=== PATIENT | female | born 1995 | race African-American/Black ===

== ENCOUNTER 2017-10-18 15:32 | Inpatient (IN) | payer OTHER ==
[2017-10-18] MEDS: BETAMET NA PHOS/AC(6 MG/ML) 5ML INJ IM (18:17)
[2017-10-18] MEDS: AMPICILLIN 2 GM/NS (PMX) 100 ML IVPB ×2 (18:23→22:10)
[2017-10-18 18:24] LABS: ADD UMIC YES; UR ASCORBIC ACID 40 mg/dL (NEGATIVE); UR BILIRUBIN (Dip) NEGATIVE (NEGATIVE); UR BLOOD (Dip) 3+ mg/dL (NEGATIVE); UR CLARITY CLEAR (CLEAR); UR COLOR YELLOW (YELLOW); UR GLUCOSE (Dip) NEGATIVE (NEGATIVE); UR KETONES (Dip) NEGATIVE (NEGATIVE); UR LEUKOCYTE ESTERASE (Dip) TRACE Leu/ul (NEGATIVE); UR MUCUS FEW /HPF (NONE SEEN); UR NITRITE (Dip) NEGATIVE (NEGATIVE); UR RBC 56 /HPF (0-5); UR SPECIFIC GRAVITY (Dip) 1.031 (1.003-1.030); UR SQUAMOUS EPITHELIAL CELL FEW /HPF (FEW); UR TOTAL PROTEIN (Dip) 1+ mg/dl (NEGATIVE); UR UROBILINOGEN (Dip) 2+ mg/dL (NEGATIVE); UR WBC 5 /HPF (0-5)
[2017-10-18] MEDS: LACTATED RINGER'S 1,000 ML IV (18:26)
[2017-10-18 19:43] LABS: ADD MAN DIFF? NO
[2017-10-18 19:49] LABS: BASOPHILS % 0.1 % (0.0-2.0); EOSINOPHILS # 0.2 10^3/ul (0.0-0.5); EOSINOPHILS % 2.3 % (0.0-7.0); HEMATOCRIT 27.3 % (37.0-47.0); HEMOGLOBIN 9.5 g/dl (12.0-16.0); LYMPHOCYTES # 2.3 10^3/ul (0.8-2.9); LYMPHOCYTES % 30.4 % (15.0-51.0); MEAN CORPUSCULAR HEMOGLOBIN 31.3 pg (29.0-33.0); MEAN CORPUSCULAR HGB CONC 34.8 g/dl (32.0-37.0); MEAN CORPUSCULAR VOLUME 89.8 fl (82.0-101.0); MEAN PLATELET VOLUME 8.9 fl (7.4-10.4); MONOCYTE # 0.7 10^3/ul (0.3-0.9); MONOCYTES % 8.6 % (0.0-11.0); NEUTROPHIL # 4.5 10^3/ul (1.6-7.5); NEUTROPHILS % 58.1 % (39.0-77.0); PLATELET COUNT 369 10^3/UL (140-415); RED BLOOD COUNT 3.04 10^6/ul (4.20-5.40)
[2017-10-18 19:49] LABS: WHITE BLOOD COUNT 7.7 10^3/ul (4.8-10.8)
[2017-10-18 20:07] LABS: INR 0.91; PROTIME 12.3 Sec (11.9-14.9)
[2017-10-18 20:08] LABS: PARTIAL THROMBOPLASTIN TIME 28.7 Sec (25.0-35.0)
[2017-10-18] MEDS ORDERED: AMPICILLIN 2 GM/NS (PMX) 100 ML IVPB (21:00)
[2017-10-18] MEDS ORDERED: BETAMET NA PHOS/AC(6 MG/ML) 5ML INJ IM (21:00)
[2017-10-19] MEDS: LACTATED RINGER'S 1,000 ML IV ×4 (00:57→22:40)
[2017-10-19] MEDS: CALCIUM CARBONATE 500 MG CHEW TAB PO (00:58)
[2017-10-19] MEDS: AMPICILLIN 2 GM/NS (PMX) 100 ML IVPB ×6 (02:40→22:43)
[2017-10-19] MEDS: FERROUS SULFATE (EC) 325 MG TAB PO (08:32)
[2017-10-19] MEDS: DOCUSATE SODIUM 100 MG CAP PO (08:33)
[2017-10-19] MEDS: PRENATAL VITAMIN PO (08:33)
[2017-10-19] MEDS ORDERED: PNV CMB PO (09:00)
[2017-10-19] MEDS ORDERED: [UNRECOGNIZED DRUG - OTHER] PO (09:00)
[2017-10-19] MEDS ORDERED: FERROUS FUMARATE PO (09:00)
[2017-10-19] MEDS ORDERED: MEPERIDINE 25 MG INJ IV (14:00)
[2017-10-19 15:14] LABS: ADD MAN DIFF? NO
[2017-10-19 15:17] LABS: BASOPHILS % 0.1 % (0.0-2.0); EOSINOPHILS % 0.1 % (0.0-7.0); HEMATOCRIT 25.5 % (37.0-47.0); HEMOGLOBIN 8.8 g/dl (12.0-16.0); LYMPHOCYTES # 1.7 10^3/ul (0.8-2.9); LYMPHOCYTES % 17.5 % (15.0-51.0); MEAN CORPUSCULAR HEMOGLOBIN 30.9 pg (29.0-33.0); MEAN CORPUSCULAR HGB CONC 34.5 g/dl (32.0-37.0); MEAN CORPUSCULAR VOLUME 89.5 fl (82.0-101.0); MONOCYTE # 0.8 10^3/ul (0.3-0.9); MONOCYTES % 8.9 % (0.0-11.0); NEUTROPHIL # 6.8 10^3/ul (1.6-7.5); NEUTROPHILS % 72.3 % (39.0-77.0); PLATELET COUNT 353 10^3/UL (140-415); RED BLOOD COUNT 2.85 10^6/ul (4.20-5.40)
[2017-10-19 15:17] LABS: WHITE BLOOD COUNT 9.5 10^3/ul (4.8-10.8)
[2017-10-19 15:36] LABS: ALANINE AMINOTRANSFERASE 30 IU/L (13-69); ALBUMIN 3.3 g/dl (3.3-4.9); ALBUMIN/GLOBULIN RATIO 0.97; ALKALINE PHOSPHATASE 142 IU/L (42-121); ANION GAP 13 (8-16); ASPARTATE AMINO TRANSFERASE 21 IU/L (15-46); BILIRUBIN,INDIRECT 0.1 mg/dl (0-1.1); BILIRUBIN,TOTAL 0.1 mg/dl (0.2-1.3); BLOOD UREA NITROGEN 9 mg/dl (7-20); CALCIUM 8.9 mg/dl (8.4-10.2); CARBON DIOXIDE 21 mmol/L (21-31); CHLORIDE 107 mmol/L (97-110); CREATININE 0.58 mg/dl (0.44-1.00); GLUCOSE 128 mg/dl (70-220); POTASSIUM 3.7 mmol/L (3.5-5.1); SODIUM 137 mmol/L (135-144); TOTAL PROTEIN 6.7 g/dl (6.1-8.1)
[2017-10-19] MEDS: FAMOTIDINE 20 MG INJ IV (17:26)
[2017-10-19] MEDS: BETAMET NA PHOS/AC(6 MG/ML) 5ML INJ IM (18:21)
[2017-10-20] MEDS: AMPICILLIN 2 GM/NS (PMX) 100 ML IVPB ×6 (04:20→22:51)
[2017-10-20] MEDS: ACETAMINOPHEN 325 MG TAB PO (04:56)
[2017-10-20] MEDS: LACTATED RINGER'S 1,000 ML IV ×4 (06:32→19:00)
[2017-10-20] MEDS: FERROUS SULFATE (EC) 325 MG TAB PO (09:00)
[2017-10-20] MEDS: DOCUSATE SODIUM 100 MG CAP PO (09:15)
[2017-10-20] MEDS: PRENATAL VITAMIN PO (09:15)
[2017-10-20] MEDS: ONDANSETRON 4 MG INJ IV (18:41)
[2017-10-21] MEDS: AMPICILLIN 2 GM/NS (PMX) 100 ML IVPB ×2 (02:30→06:25)
[2017-10-21] MEDS: FERROUS SULFATE (EC) 325 MG TAB PO (09:00)
[2017-10-21] MEDS ORDERED: CALCIUM CARBONATE 500 MG CHEW TAB PO (09:05)
[2017-10-21] MEDS: DOCUSATE SODIUM 100 MG CAP PO (09:06)
[2017-10-21] MEDS: PRENATAL VITAMIN PO (09:06)
[2017-10-21] MEDS: AL HYDROX/MG HYDROX/SIMETH 30 ML CUP PO (09:08)
== END 2017-10-21 09:45 | disposition home or self-care (01) | DRG 778 ==
LOC: OBT 15:32 → L-D 15:33 → OBT 17:00 → L-D 17:00 → PP1 18:00
DX: O60.03 Preterm labor without delivery, third trimester (principal); K76.0 Fatty (change of) liver, not elsewhere classified; N13.30 Unspecified hydronephrosis; O23.43 Unspecified infection of urinary tract in pregnancy, third trimester; O26.612 Liver and biliary tract disorders in pregnancy, second trimester; O99.613 Diseases of the digestive system complicating pregnancy, third trimester; K80.20 Calculus of gallbladder without cholecystitis without obstruction; B95.61 Methicillin susceptible Staphylococcus aureus infection as the cause of diseases classified elsewhere; Z3A.34 34 weeks gestation of pregnancy; Z87.440 Personal history of urinary (tract) infections
CPT/HCPCS: 76705; 76775; 76818; 80053; 81001; 85025; 85610; 85730; 87086; 93970

== ENCOUNTER 2017-10-25 14:31 | Inpatient (IN) | payer OTHER ==
[2017-10-25] MEDS ORDERED: LACTATED RINGER'S 1,000 ML IV (15:13)
[2017-10-25] MEDS ORDERED: MISOPROSTOL 200 MCG TAB PR (15:30)
[2017-10-25] MEDS ORDERED: BUTORPHANOL 2 MG INJ IV (15:30)
[2017-10-25] MEDS ORDERED: OXYTOCIN 30 UNITS/LR 500 ML IV ×3 (15:30)
[2017-10-25] MEDS ORDERED: METHYLERGONOVINE 0.2 MG INJ IM (15:30)
[2017-10-25] MEDS ORDERED: LIDOCAINE 1% (MPF) 30 ML INJ INJ (15:30)
[2017-10-25] MEDS ORDERED: CARBOPROST 250 MCG INJ IM (15:30)
[2017-10-25] MEDS: LACTATED RINGER'S 1,000 ML IV (16:43)
[2017-10-25] MEDS: AMPICILLIN 2 GM/NS (PMX) 100 ML IV (16:44)
[2017-10-25 17:34] LABS: ADD MAN DIFF? NO
[2017-10-25 17:37] LABS: WHITE BLOOD COUNT 10.2 10^3/ul (4.8-10.8)
[2017-10-25 17:37] LABS: BASOPHILS % 0.2 % (0.0-2.0); EOSINOPHILS # 0.3 10^3/ul (0.0-0.5); EOSINOPHILS % 2.7 % (0.0-7.0); HEMOGLOBIN 9.2 g/dl (12.0-16.0); LYMPHOCYTES # 2.7 10^3/ul (0.8-2.9); LYMPHOCYTES % 26.9 % (15.0-51.0); MEAN CORPUSCULAR HEMOGLOBIN 30.8 pg (29.0-33.0); MEAN CORPUSCULAR HGB CONC 34.1 g/dl (32.0-37.0); MEAN CORPUSCULAR VOLUME 90.3 fl (82.0-101.0); MEAN PLATELET VOLUME 8.7 fl (7.4-10.4); MONOCYTE # 0.9 10^3/ul (0.3-0.9); MONOCYTES % 9.1 % (0.0-11.0); NEUTROPHIL # 6.1 10^3/ul (1.6-7.5); NEUTROPHILS % 60.3 % (39.0-77.0); PLATELET COUNT 351 10^3/UL (140-415); RED BLOOD COUNT 2.99 10^6/ul (4.20-5.40); RED CELL DISTRIBUTION WIDTH 13.3 % (11.5-14.5)
[2017-10-25 17:56] LABS: INR 1.01; PROTIME 13.4 Sec (11.9-14.9)
[2017-10-25 17:57] LABS: PARTIAL THROMBOPLASTIN TIME 26.6 Sec (25.0-35.0)
[2017-10-25 18:30] LABS: HEPATITIS B SURFACE ANTIGEN NEGATIVE (NEGATIVE)
[2017-10-25 19:22] LABS: ADD UMIC YES; UR ASCORBIC ACID 40 mg/dL (NEGATIVE); UR BACTERIA FEW /HPF (NONE SEEN); UR BILIRUBIN (Dip) NEGATIVE (NEGATIVE); UR BLOOD (Dip) 2+ mg/dL (NEGATIVE); UR CLARITY CLEAR (CLEAR); UR COLOR YELLOW (YELLOW); UR GLUCOSE (Dip) NEGATIVE (NEGATIVE); UR KETONES (Dip) NEGATIVE (NEGATIVE); UR LEUKOCYTE ESTERASE (Dip) TRACE Leu/ul (NEGATIVE); UR NITRITE (Dip) NEGATIVE (NEGATIVE); UR RBC 41 /HPF (0-5); UR SPECIFIC GRAVITY (Dip) 1.028 (1.003-1.030); UR SQUAMOUS EPITHELIAL CELL FEW /HPF (FEW); UR TOTAL PROTEIN (Dip) 2+ mg/dl (NEGATIVE); UR UROBILINOGEN (Dip) NEGATIVE (NEGATIVE); UR WBC 5 /HPF (0-5)
[2017-10-25] MEDS: AMPICILLIN 1 GM/NS (PMX) 50 ML IV ×2 (19:44→23:44)
[2017-10-25 19:51] LABS: CANNABINOIDS Negative (NEGATIVE); OPIATES Negative (NEGATIVE)
[2017-10-25 20:02] LABS: AMPHETAMINE/METHAMPHETAMINE Negative (NEGATIVE); BARBITURATES Negative (NEGATIVE); BENZODIAZEPINES Negative (NEGATIVE); COCAINE Negative (NEGATIVE)
[2017-10-26] MEDS: AMPICILLIN 1 GM/NS (PMX) 50 ML IV ×7 (00:30→23:55)
[2017-10-26] MEDS: LACTATED RINGER'S 1,000 ML IV ×3 (01:31→19:47)
[2017-10-26] MEDS: ONDANSETRON 4 MG INJ IV (12:37)
[2017-10-26] MEDS ORDERED: MEPERIDINE 50 MG INJ IV (13:00)
[2017-10-26 15:40] LABS: RAPID PLASMA REAGIN NONREACTIVE (NR)
== END 2017-10-27 14:09 | disposition home or self-care (01) | DRG 780 ==
LOC: OBT 14:31 → L-D 14:56 → OBT 14:31 → L-D 15:40
DX: O47.03 False labor before 37 completed weeks of gestation, third trimester (principal); Z3A.35 35 weeks gestation of pregnancy
CPT/HCPCS: 76815; 76818; 80307; 81001; 85025; 85610; 85730; 86592; 86900; 86901; 87086; 87340

== ENCOUNTER 2018-06-28 01:26 | Emergency (ER) | payer OTHER ==
[2018-06-28 02:07] LABS: ADD MAN DIFF? NO
[2018-06-28] MEDS: morphine 4 MG/ML VIAL IV (02:07)
[2018-06-28] MEDS: SOD CHLORIDE 0.9% 1,000 ML IV (02:07)
[2018-06-28] MEDS: ONDANSETRON 4 MG INJ IV (02:07)
[2018-06-28 02:12] LABS: WHITE BLOOD COUNT 13.2 10^3/ul (4.8-10.8)
[2018-06-28 02:12] LABS: BASOPHILS % 0.2 % (0.0-2.0); EOSINOPHILS # 0.2 10^3/ul (0.0-0.5); EOSINOPHILS % 1.2 % (0.0-7.0); HEMATOCRIT 36.3 % (37.0-47.0); HEMOGLOBIN 12.2 g/dl (12.0-16.0); LYMPHOCYTES # 2.7 10^3/ul (0.8-2.9); LYMPHOCYTES % 20.5 % (15.0-51.0); MEAN CORPUSCULAR HEMOGLOBIN 31.4 pg (29.0-33.0); MEAN CORPUSCULAR HGB CONC 33.6 g/dl (32.0-37.0); MEAN CORPUSCULAR VOLUME 93.6 fl (82.0-101.0); MEAN PLATELET VOLUME 8.6 fl (7.4-10.4); MONOCYTE # 0.7 10^3/ul (0.3-0.9); MONOCYTES % 5.1 % (0.0-11.0); NEUTROPHIL # 9.6 10^3/ul (1.6-7.5); NEUTROPHILS % 72.7 % (39.0-77.0); PLATELET COUNT 342 10^3/UL (140-415); RED BLOOD COUNT 3.88 10^6/ul (4.20-5.40); RED CELL DISTRIBUTION WIDTH 12.1 % (11.5-14.5)
[2018-06-28 02:34] LABS: ALANINE AMINOTRANSFERASE 37 IU/L (13-69); ALBUMIN 3.5 g/dl (3.3-4.9); ALBUMIN/GLOBULIN RATIO 0.94; ALKALINE PHOSPHATASE 148 IU/L (42-121); ANION GAP 9 (8-16); ASPARTATE AMINO TRANSFERASE 47 IU/L (15-46); BILIRUBIN,INDIRECT 0.2 mg/dl (0-1.1); BILIRUBIN,TOTAL 0.2 mg/dl (0.2-1.3); BLOOD UREA NITROGEN 18 mg/dl (7-20); CALCIUM 9.3 mg/dl (8.4-10.2); CARBON DIOXIDE 29 mmol/L (21-31); CHLORIDE 104 mmol/L (97-110); CREATININE 0.91 mg/dl (0.44-1.00); GLUCOSE 89 mg/dl (70-220); LIPASE 351 U/L (23-300); POTASSIUM 3.9 mmol/L (3.5-5.1); SODIUM 138 mmol/L (135-144); TOTAL PROTEIN 7.2 g/dl (6.1-8.1)
[2018-06-28 03:19] LABS: ADD UMIC YES; UR ASCORBIC ACID NEGATIVE (NEGATIVE); UR BILIRUBIN (Dip) NEGATIVE (NEGATIVE); UR BLOOD (Dip) 3+ mg/dL (NEGATIVE); UR CLARITY CLEAR (CLEAR); UR COLOR YELLOW (YELLOW); UR GLUCOSE (Dip) NEGATIVE (NEGATIVE); UR KETONES (Dip) NEGATIVE (NEGATIVE); UR LEUKOCYTE ESTERASE (Dip) NEGATIVE Leu/ul (NEGATIVE); UR NITRITE (Dip) NEGATIVE (NEGATIVE); UR RBC 10 /HPF (0-5); UR SPECIFIC GRAVITY (Dip) 1.018 (1.003-1.030); UR SQUAMOUS EPITHELIAL CELL FEW /HPF (FEW); UR TOTAL PROTEIN (Dip) NEGATIVE (NEGATIVE); UR UROBILINOGEN (Dip) NEGATIVE (NEGATIVE); UR WBC 5 /HPF (0-5)
[2018-06-28] MEDS: KETOROLAC 30 MG INJ IV (03:35)
== END 2018-06-28 04:00 | disposition home or self-care (01) ==
LOC: E/R 01:26
DX: K80.70 Calculus of gallbladder and bile duct without cholecystitis without obstruction (principal); F17.210 Nicotine dependence, cigarettes, uncomplicated
CPT/HCPCS: 36415; 76705; 80053; 81001; 81025; 83690; 85025; 96374; 96375; 99285-25

== ENCOUNTER 2019-02-11 19:42 | Emergency (ER) | payer OTHER ==
[2019-02-11 20:25] LABS: ADD MAN DIFF? NO
[2019-02-11 20:26] LABS: WHITE BLOOD COUNT 9.5 10^3/ul (4.8-10.8)
[2019-02-11 20:26] LABS: BASOPHILS % 0.3 % (0.0-2.0); EOSINOPHILS # 0.2 10^3/ul (0.0-0.5); EOSINOPHILS % 1.6 % (0.0-7.0); HEMATOCRIT 35.3 % (37.0-47.0); HEMOGLOBIN 11.6 g/dl (12.0-16.0); LYMPHOCYTES # 2.8 10^3/ul (0.8-2.9); LYMPHOCYTES % 29.6 % (15.0-51.0); MEAN CORPUSCULAR HEMOGLOBIN 31.2 pg (29.0-33.0); MEAN CORPUSCULAR HGB CONC 32.9 g/dl (32.0-37.0); MEAN CORPUSCULAR VOLUME 94.9 fl (82.0-101.0); MEAN PLATELET VOLUME 8.5 fl (7.4-10.4); MONOCYTE # 0.4 10^3/ul (0.3-0.9); MONOCYTES % 3.9 % (0.0-11.0); NEUTROPHIL # 6.1 10^3/ul (1.6-7.5); NEUTROPHILS % 64.3 % (39.0-77.0); PLATELET COUNT 337 10^3/UL (140-415); RED BLOOD COUNT 3.72 10^6/ul (4.20-5.40); RED CELL DISTRIBUTION WIDTH 12.9 % (11.5-14.5)
[2019-02-11] MEDS: OXYCODONE/ACETAMINOPHEN (5/325) TAB PO (20:30)
[2019-02-11 20:52] LABS: ALANINE AMINOTRANSFERASE 39 IU/L (13-69); ALBUMIN 4.2 g/dl (3.3-4.9); ALBUMIN/GLOBULIN RATIO 1.16; ALKALINE PHOSPHATASE 135 IU/L (42-121); ANION GAP 7 (5-13); ASPARTATE AMINO TRANSFERASE 41 IU/L (15-46); BILIRUBIN,INDIRECT 0.2 mg/dl (0-1.1); BILIRUBIN,TOTAL 0.2 mg/dl (0.2-1.3); BLOOD UREA NITROGEN 22 mg/dl (7-20); CALCIUM 9.5 mg/dl (8.4-10.2); CARBON DIOXIDE 30 mmol/L (21-31); CHLORIDE 105 mmol/L (97-110); Estimated GFR > 60 mL/min (>60); GLUCOSE 162 mg/dl (70-220); LIPASE 397 U/L (23-300); POTASSIUM 3.9 mmol/L (3.5-5.1); SODIUM 142 mmol/L (135-144); TOTAL PROTEIN 7.8 g/dl (6.1-8.1)
== END 2019-02-11 21:33 | disposition home or self-care (01) ==
LOC: FTE 21:33
DX: K80.20 Calculus of gallbladder without cholecystitis without obstruction (principal); F17.210 Nicotine dependence, cigarettes, uncomplicated
CPT/HCPCS: 76705; 80053; 83690; 85025; 99284-25

== ENCOUNTER 2019-02-22 22:14 | Emergency (ER) | payer OTHER ==
[2019-02-22] MEDS: ONDANSETRON 4 MG INJ IV (22:26)
[2019-02-22] MEDS: SOD CHLORIDE 0.9% 1,000 ML IV (22:27)
[2019-02-22 22:57] LABS: URINE PH (Dip) POC 7.5 (5.0-8.5)
[2019-02-22 22:57] LABS: ADD MAN DIFF? NO; URINE BLOOD (Dip) POC Trace-intact (NEGATIVE); URINE GLUCOSE (Dip) POC Negative (NEGATIVE); URINE KETONES (Dip) POC Negative (NEGATIVE); URINE LEUKOCYTE EST (Dip) POC Negative (NEGATIVE); URINE NITRITE (Dip) POC Negative (NEGATIVE); URINE TOTAL PROTEIN POC Negative (NEGATIVE)
[2019-02-22 23:02] LABS: BASOPHILS % 0.3 % (0.0-2.0); EOSINOPHILS # 0.1 10^3/ul (0.0-0.5); EOSINOPHILS % 0.8 % (0.0-7.0); HEMATOCRIT 33.4 % (37.0-47.0); HEMOGLOBIN 11.3 g/dl (12.0-16.0); LYMPHOCYTES # 4.2 10^3/ul (0.8-2.9); LYMPHOCYTES % 29.1 % (15.0-51.0); MEAN CORPUSCULAR HEMOGLOBIN 31.7 pg (29.0-33.0); MEAN CORPUSCULAR HGB CONC 33.8 g/dl (32.0-37.0); MEAN CORPUSCULAR VOLUME 93.8 fl (82.0-101.0); MEAN PLATELET VOLUME 9.8 fl (7.4-10.4); MONOCYTE # 0.9 10^3/ul (0.3-0.9); NEUTROPHIL # 9.3 10^3/ul (1.6-7.5); NEUTROPHILS % 63.5 % (39.0-77.0); PLATELET COUNT 309 10^3/UL (140-415); RED BLOOD COUNT 3.56 10^6/ul (4.20-5.40); RED CELL DISTRIBUTION WIDTH 13.3 % (11.5-14.5)
[2019-02-22 23:02] LABS: WHITE BLOOD COUNT 14.6 10^3/ul (4.8-10.8)
[2019-02-22] MEDS: HYDROCODONE/APAP (5/325) TAB PO (23:17)
[2019-02-22 23:19] LABS: ALANINE AMINOTRANSFERASE 39 IU/L (13-69); ALBUMIN 4.4 g/dl (3.3-4.9); ALBUMIN/GLOBULIN RATIO 1.22; ALKALINE PHOSPHATASE 142 IU/L (42-121); ANION GAP 9 (5-13); ASPARTATE AMINO TRANSFERASE 65 IU/L (15-46); BILIRUBIN,INDIRECT 0.3 mg/dl (0-1.1); BILIRUBIN,TOTAL 0.3 mg/dl (0.2-1.3); BLOOD UREA NITROGEN 21 mg/dl (7-20); CALCIUM 10.2 mg/dl (8.4-10.2); CARBON DIOXIDE 28 mmol/L (21-31); CHLORIDE 103 mmol/L (97-110); CREATININE 0.79 mg/dl (0.44-1.00); Estimated GFR > 60 mL/min (>60); GLUCOSE 95 mg/dl (70-220); LIPASE 420 U/L (23-300); POTASSIUM 3.8 mmol/L (3.5-5.1); SODIUM 140 mmol/L (135-144)
[2019-02-22] MEDS: KETOROLAC 30 MG INJ IV (23:58)
== END 2019-02-23 02:56 | disposition home or self-care (01) ==
LOC: E/R 02-23 02:56
DX: K80.50 Calculus of bile duct without cholangitis or cholecystitis without obstruction (principal); Z87.891 Personal history of nicotine dependence
CPT/HCPCS: 36415; 80053; 81003; 81025; 83690; 84702; 85025; 96374; 99284-25